=== PATIENT | female | born 1960 ===

== ENCOUNTER 2019-03-17 01:36 | Emergency (ER) | payer OTHER ==
[2019-03-17 02:14] LABS: Bilirubin Negative (Negative); Blood, Urine Negative (Negative); Clarity Clear (Clear); Glucose, Urine (Dipstick) Normal (Negative); Leukocyte Negative Leu/uL (Negative); Nitrite Negative (Negative); Protein, Urine (Dipstick) Negative (Neg-Trace); Urobilinogen Normal mg/dL (Less than 2)
[2019-03-17] MEDS ORDERED: Ibuprofen 800 MG TAB ONE (02:33)
== END 2019-03-17 03:15 | disposition home or self-care (01) ==
LOC: ERS 01:36
DX: M54.5 Low back pain (principal)
CPT/HCPCS: 81003; 99284